=== PATIENT | male | born 1955 | race Caucasian/White ===

== ENCOUNTER 2020-03-29 16:07 | Inpatient (IN) | payer MEDICARE, BC ==
[~2020-03-29] VITALS: Ht 182.9 cm; Wt 89.4 kg
[2020-03-29] MEDS ORDERED: Z GUARD REMEDY PASTE 57 GM TUBE TOP PRN (20:00)
[2020-03-29] MEDS ORDERED: LOSA50TA3 PO (20:05)
[2020-03-29] MEDS ORDERED: MULT-594 PO (20:05)
[2020-03-29] MEDS ORDERED: SITA100T PO (20:05)
[2020-03-29] MEDS ORDERED: GABA-532 PO (20:05)
[2020-03-29] MEDS ORDERED: GLIP5TAB26 PO (20:05)
[2020-03-29] MEDS ORDERED: ASPI-612 PO (20:25)
[2020-03-29 20:30] VITALS: BP 114/65
[2020-03-29] MEDS ORDERED: MIRALAX 17 GM POWD.PACK PO PRN (21:00)
[2020-03-29] MEDS: DOCUSATE SODIUM 100 MG CAPSULE PO SCH (21:19)
[2020-03-29] MEDS: GABAPENTIN 100 MG CAPSULE PO SCH (21:19)
--- NOTE | 2020-03-29 21:43 | NUR ---
Pt arrived in the unit at 1925 via gurney accompanied by sales lead. Pt came from [facility]. Pt is AAO x4. No acute distress noted. Admitting diagnosis: S/P left hip fracture, S/P left hip ORIF sx. Surgical site on lower abdominal area, original dressing, to be change post-op day 7 as per surgeon. No redness, itchiness, warmth, or drainage noted on the surrounding area. Pertinent assessment done. Notified Dr. Osman and Dr. Benton of admission and for med recon. Oriented pt to the room and equipment. Safety measures maintained. Call light and personal items within reach. Will continue to monitor.
[2020-03-29] MEDS: ACETAMINOPHEN 325 MG TABLET PO PRN (23:44)
[2020-03-30] MEDS: ZOLPIDEM 5 MG TABLET PO PRN ×2 (00:48→22:50)
[2020-03-30] MEDS: OXYCODONE/APAP 5-325 MG TABLET PO PRN ×4 (01:20→17:41)
[2020-03-30 04:50] VITALS: BP 115/63
[2020-03-30 07:18] LABS: THYROID STIMULATING HORMONE 2.599 mIU/mL (0.358-3.740)
[2020-03-30 07:53] LABS: BASOPHILS % (AUTO) 0.3 % (0.0-2.0); EOSINOPHILS # (AUTO) 0.3 K/uL (0.0-0.7); EOSINOPHILS % (AUTO) 4.2 % (0.0-7.0); HEMATOCRIT 24.6 % (36.7-47.1); HEMOGLOBIN 8.6 g/dL (12.5-16.3); LYMPHOCYTES # (AUTO) 1.4 K/uL (20.0-40.0); LYMPHOCYTES % (AUTO) 17.8 % (20.5-51.5); MEAN CORPUSCULAR HEMOGLOBIN 31.1 uug (23.8-33.4); MEAN CORPUSCULAR HGB CONC 35 g/dL (32.5-36.3); MONOCYTES # (AUTO) 0.9 K/uL (2.0-10.0); MONOCYTES % (AUTO) 11.3 % (0.0-11.0); NEUTROPHILS # (AUTO) 5.2 K/uL (1.8-8.9); NEUTROPHILS % (AUTO) 66.4 % (38.5-71.5); PLATELET COUNT (AUTO) 309 K/uL (152-348); RED BLOOD CELL COUNT(AUTO) 2.77 MIL/uL (4.06-5.63); WHITE BLOOD COUNT (AUTO) 7.8 K/uL (3.6-10.2)
[2020-03-30 07:59] LABS: BILIRUBIN,TOTAL 0.9 mg/dL (0.2-1.0); CREATININE 1.1 mg/dL (0.6-1.3); MAGNESIUM 2.1 mg/dL (1.8-2.4); POTASSIUM 4.1 mmol/L (3.5-5.1); TOTAL PROTEIN, SERUM 6.4 g/dL (6.4-8.2)
[2020-03-30 08:00] VITALS: BP 128/68
[2020-03-30] MEDS: LINAGLIPTIN 5 MG TABLET PO SCH (08:36)
[2020-03-30] MEDS: MULTIVITAMINS,THERAPEUTIC TABLET PO SCH (08:36)
[2020-03-30] MEDS: ASPIRIN 325 MG TABLET PO SCH (08:36)
--- NOTE | 2020-03-30 09:04 | NUR ---
Pt received this morning, assessed, no acute distress, no SOB, reports pain 8/10 to hips and knees after transferring from bed to wheelchair with therapist. Pt compliant with routine and PRN pain medication. Pt cooperative with therapies as offered. Left hip original dressing in place, appears clean and dry, will endorse to remain until 7th day post op (04/01). Pt AAOx4, able to make needs known. Call light within reach. Plan for today discussed. Will continue to monitor.
[2020-03-30] MEDS: glipiZIDE XL 5 MG TABCR PO SCH ×2 (09:20→17:09)
[2020-03-30] MEDS: LOSARTAN POTASSIUM 50 MG TABLET PO SCH (09:21)
[2020-03-30] MEDS: ACETAMINOPHEN 325 MG TABLET PO PRN (11:08)
[2020-03-30 15:49] VITALS: BP 122/73
[2020-03-30 20:00] VITALS: BP 127/65
[2020-03-30] MEDS: GABAPENTIN 100 MG CAPSULE PO SCH (20:22)
[2020-03-30] MEDS: DOCUSATE SODIUM 100 MG CAPSULE PO SCH (20:22)
--- NOTE | 2020-03-30 21:33 | NUR ---
Received pt resting in bed and watching tv. AAO x4. No acute distress noted. Denies pain/ discomfort at this time. Due meds given as ordered. Left leg kept straight. Safety measures maintained. Call light and personal items within reach. Will continue to monitor.
[2020-03-31 04:00] VITALS: BP 125/69
[2020-03-31 08:00] VITALS: BP 120/68
[2020-03-31] MEDS: ASPIRIN 325 MG TABLET PO SCH (08:20)
[2020-03-31] MEDS: LINAGLIPTIN 5 MG TABLET PO SCH (08:20)
[2020-03-31] MEDS: MULTIVITAMINS,THERAPEUTIC TABLET PO SCH (08:20)
[2020-03-31] MEDS: OXYCODONE/APAP 5-325 MG TABLET PO PRN ×3 (08:23→21:48)
[2020-03-31] MEDS: LOSARTAN POTASSIUM 50 MG TABLET PO SCH (08:24)
[2020-03-31] MEDS: glipiZIDE XL 5 MG TABCR PO SCH ×2 (09:06→16:11)
[2020-03-31 15:50] VITALS: BP 120/69
[2020-03-31] MEDS: GABAPENTIN 100 MG CAPSULE PO SCH (20:17)
[2020-03-31] MEDS: DOCUSATE SODIUM 100 MG CAPSULE PO SCH (20:17)
[2020-03-31 20:30] VITALS: BP 130/63
--- NOTE | 2020-03-31 21:30 | NUR ---
Received pt resting in bed and watching tv. AAO x4. No acute distress noted, no s/s of SOB noted. complaint of 8/10 pain. Administered Percocet PRN for 8/10 pain in left hip. All due mediation given as ordered. Left leg kept straight. All needs attended too. Skin warm to touch, dy and intact. Origional dressing on abdomen intact, no drainage, no s/s of infection noted. Safety measures maintained. Call light and personal items within reach. Will continue to monitor throughout the night.
[2020-04-01 04:10] VITALS: BP 126/68
[2020-04-01 07:47] VITALS: BP 125/67
[2020-04-01] MEDS: LINAGLIPTIN 5 MG TABLET PO SCH (08:44)
[2020-04-01] MEDS: MULTIVITAMINS,THERAPEUTIC TABLET PO SCH (08:44)
[2020-04-01] MEDS: ASPIRIN 325 MG TABLET PO SCH (08:44)
[2020-04-01] MEDS: LOSARTAN POTASSIUM 50 MG TABLET PO SCH (08:45)
[2020-04-01] MEDS: glipiZIDE XL 5 MG TABCR PO SCH ×2 (08:45→16:44)
[2020-04-01] MEDS: OXYCODONE/APAP 5-325 MG TABLET PO PRN (08:53)
--- NOTE | 2020-04-01 13:32 | NUR ---
INTERDISCIPLINARY TEAM CONFERENCE
--- NOTE | 2020-04-01 13:34 | NUR ---
INDIVIDUALIZED PLAN OF CARE
[2020-04-01 15:00] VITALS: BP 122/70
--- NOTE | 2020-04-01 18:38 | NUR ---
patient noted with open blister to his right mid back, wound consult placed, incision site is dr and clean, thais are intact. Addendum: 04/01/20 at 1839 by JUANITA PETERSEN RN RN incision site is clean and dry, well approximated
[2020-04-01 20:21] VITALS: BP 123/66
[2020-04-01] MEDS: GABAPENTIN 300 MG CAPSULE PO SCH (20:42)
[2020-04-01] MEDS: DOCUSATE SODIUM 100 MG CAPSULE PO SCH (20:42)
[2020-04-02] MEDS: ZOLPIDEM 5 MG TABLET PO PRN (01:50)
--- NOTE | 2020-04-02 02:31 | NUR ---
Admitted for left hip fracture. Patient S/P left hip ORIF by Dr Curry in [facility]. Abdominal incision with dressing clean dry and intact thru anterior approach. On pain management. Denies any pain at this time. Will monitor patient. Voiding freely. Kept comfortable. VSS. Fall precautions maintained. Siderails up for safety.
[2020-04-02 04:00] VITALS: BP 122/74
[2020-04-02 08:00] VITALS: BP 115/63
[2020-04-02 08:08] LABS: BILIRUBIN,TOTAL 0.7 mg/dL (0.2-1.0); CREATININE 1.1 mg/dL (0.6-1.3); MAGNESIUM 2.1 mg/dL (1.8-2.4); PHOSPHOROUS 4.2 mg/dL (2.5-4.9); POTASSIUM 4.4 mmol/L (3.5-5.1); TOTAL PROTEIN, SERUM 6.5 g/dL (6.4-8.2)
[2020-04-02] MEDS: LINAGLIPTIN 5 MG TABLET PO SCH (08:39)
[2020-04-02] MEDS: ASPIRIN 325 MG TABLET PO SCH (08:40)
[2020-04-02] MEDS: MULTIVITAMINS,THERAPEUTIC TABLET PO SCH (08:40)
[2020-04-02] MEDS: LOSARTAN POTASSIUM 50 MG TABLET PO SCH (08:40)
[2020-04-02] MEDS: glipiZIDE XL 5 MG TABCR PO SCH ×2 (08:40→17:38)
[2020-04-02 09:21] LABS: BASOPHILS # (AUTO) 0.1 K/uL (0.0-8.0); BASOPHILS % (AUTO) 0.7 % (0.0-2.0); EOSINOPHILS # (AUTO) 0.4 K/uL (0.0-0.7); EOSINOPHILS % (AUTO) 4.3 % (0.0-7.0); HEMATOCRIT 23.8 % (36.7-47.1); HEMOGLOBIN 8.3 g/dL (12.5-16.3); LYMPHOCYTES # (AUTO) 1.5 K/uL (20.0-40.0); LYMPHOCYTES % (AUTO) 18.4 % (20.5-51.5); MEAN CORPUSCULAR HEMOGLOBIN 31.2 uug (23.8-33.4); MEAN CORPUSCULAR HGB CONC 35 g/dL (32.5-36.3); MEAN CORPUSCULAR VOLUME 89.8 fL (73.0-96.2); MONOCYTES % (AUTO) 12.3 % (0.0-11.0); NEUTROPHILS # (AUTO) 5.3 K/uL (1.8-8.9); NEUTROPHILS % (AUTO) 64.3 % (38.5-71.5); PLATELET COUNT (AUTO) 573 K/uL (152-348); RED BLOOD CELL COUNT(AUTO) 2.65 MIL/uL (4.06-5.63); WHITE BLOOD COUNT (AUTO) 8.2 K/uL (3.6-10.2)
[2020-04-02 11:32] VITALS: BP 97/67
[2020-04-02] MEDS: OXYCODONE/APAP 5-325 MG TABLET PO PRN ×2 (11:52→17:38)
[2020-04-02 15:46] VITALS: BP 118/67
[2020-04-02 20:00] VITALS: BP 127/67
[2020-04-02] MEDS: GABAPENTIN 300 MG CAPSULE PO SCH (20:35)
[2020-04-02] MEDS: DOCUSATE SODIUM 100 MG CAPSULE PO SCH (20:35)
--- NOTE | 2020-04-03 03:48 | NUR ---
awake alert and oriented x3-4 Patient admitted for a left hip Fx secondary to a fall. On pain medicine, denies any pain at this time. Voiding well. Needs attended. Kept comfortable.Siderails up for safety.VSS.
[2020-04-03 04:00] VITALS: BP 116/67
--- NOTE | 2020-04-03 06:47 | NUR ---
End of shift report: Quiet night. Slept well throughout the night. Denies any pain nor any discomfort. Will monitor patient. Voiding well. No acute distress noted.
[2020-04-03 08:04] VITALS: BP 104/64
[2020-04-03] MEDS: LINAGLIPTIN 5 MG TABLET PO SCH (08:57)
[2020-04-03] MEDS: glipiZIDE XL 5 MG TABCR PO SCH ×2 (08:57→17:33)
[2020-04-03] MEDS: ASPIRIN 325 MG TABLET PO SCH (08:58)
[2020-04-03] MEDS: OXYCODONE/APAP 5-325 MG TABLET PO PRN ×3 (08:58→17:33)
[2020-04-03] MEDS: MULTIVITAMINS,THERAPEUTIC TABLET PO SCH (08:58)
[2020-04-03] MEDS: LOSARTAN POTASSIUM 50 MG TABLET PO SCH (08:58)
[2020-04-03 16:08] VITALS: BP 105/60
[2020-04-03 20:00] VITALS: BP 107/63
[2020-04-03] MEDS: GABAPENTIN 300 MG CAPSULE PO SCH (20:06)
[2020-04-03] MEDS: DOCUSATE SODIUM 100 MG CAPSULE PO SCH (20:06)
[2020-04-03] MEDS: ZOLPIDEM 5 MG TABLET PO PRN (20:10)
--- NOTE | 2020-04-03 21:55 | NUR ---
Received pt resting in bed. AAO x4. No acute distress. Denies pain/ discomfort. Due meds given as ordered. No s/s of infection on surgical site. Safety measures maintained. Call light and personal items within reach. Will continue to monitor.
[2020-04-04 04:00] VITALS: BP 108/64
--- NOTE | 2020-04-04 05:11 | NUR ---
Pt's BP 89/54, put pt in trendelenburg position. Upon recheck, BP 95/52. Pt denies dizziness, sob, or chest pain. As per pt, his BP is normally on the low side. Will continue to monitor. Addendum: 04/04/20 at 2126 by Olivia Marrero RN WRONG PATIENT
[2020-04-04 06:45] LABS: BASOPHILS # (AUTO) 0.1 K/uL (0.0-8.0); BASOPHILS % (AUTO) 0.6 % (0.0-2.0); EOSINOPHILS # (AUTO) 0.3 K/uL (0.0-0.7); EOSINOPHILS % (AUTO) 3.8 % (0.0-7.0); HEMATOCRIT 25.4 % (36.7-47.1); HEMOGLOBIN 8.7 g/dL (12.5-16.3); LYMPHOCYTES # (AUTO) 1.5 K/uL (20.0-40.0); LYMPHOCYTES % (AUTO) 17.2 % (20.5-51.5); MEAN CORPUSCULAR HEMOGLOBIN 30.8 uug (23.8-33.4); MEAN CORPUSCULAR HGB CONC 34 g/dL (32.5-36.3); MEAN CORPUSCULAR VOLUME 90.1 fL (73.0-96.2); MONOCYTES # (AUTO) 0.9 K/uL (2.0-10.0); MONOCYTES % (AUTO) 10.3 % (0.0-11.0); NEUTROPHILS # (AUTO) 6.1 K/uL (1.8-8.9); NEUTROPHILS % (AUTO) 68.1 % (38.5-71.5); PLATELET COUNT (AUTO) 710 K/uL (152-348); RED BLOOD CELL COUNT(AUTO) 2.82 MIL/uL (4.06-5.63)
[2020-04-04 07:07] LABS: BILIRUBIN,TOTAL 0.5 mg/dL (0.2-1.0); CREATININE 1.1 mg/dL (0.6-1.3); PHOSPHOROUS 3.8 mg/dL (2.5-4.9); POTASSIUM 4.6 mmol/L (3.5-5.1); TOTAL PROTEIN, SERUM 6.7 g/dL (6.4-8.2)
[2020-04-04 08:00] VITALS: BP 109/60
[2020-04-04] MEDS: ASPIRIN 325 MG TABLET PO SCH (08:37)
[2020-04-04] MEDS: LINAGLIPTIN 5 MG TABLET PO SCH (08:39)
[2020-04-04] MEDS: glipiZIDE XL 5 MG TABCR PO SCH ×2 (08:40→18:15)
[2020-04-04] MEDS: MULTIVITAMINS,THERAPEUTIC TABLET PO SCH (08:40)
[2020-04-04] MEDS: LOSARTAN POTASSIUM 50 MG TABLET PO SCH (08:41)
--- NOTE | 2020-04-04 12:16 | NUR ---
WOUND CARE CONSULT: HEALED AREA NOTED TO MIDBACK. PT IS INDEPENDENT WITH BED MOBILITY AND IS CONTINENT. WILL SEE PRN.
[2020-04-04] MEDS: OXYCODONE/APAP 5-325 MG TABLET PO PRN ×2 (12:17→19:07)
[2020-04-04 16:00] VITALS: BP 115/63
[2020-04-04 18:15] LABS: EOSINOPHILS % (MANUAL) 2 % (0-8); LYMPHOCYTES % (MANUAL) 12 % (20-40); MONOCYTES % (MANUAL) 6 % (2-10); NEUTROPHILS % (MANUAL) 80 % (42-75)
[2020-04-04] MEDS: ZOLPIDEM 5 MG TABLET PO PRN (20:01)
[2020-04-04] MEDS: GABAPENTIN 300 MG CAPSULE PO SCH (20:01)
[2020-04-04] MEDS: DOCUSATE SODIUM 100 MG CAPSULE PO SCH (20:01)
[2020-04-04 20:49] VITALS: BP 115/61
--- NOTE | 2020-04-04 21:28 | NUR ---
Received pt resting in bed and watching tv. AAO x4. No acute distress. Denies pain/ discomfort. Due meds given as ordered. Requested for Ambien, pt wants to sleep early. No s/s of infection on surgical site. Kept left leg and hip in straight position. Safety measures maintained. Call light and personal items within reach. Will continue to monitor.
[2020-04-05 04:50] VITALS: BP 122/66
[2020-04-05] MEDS: ASPIRIN 325 MG TABLET PO SCH (08:41)
[2020-04-05] MEDS: MULTIVITAMINS,THERAPEUTIC TABLET PO SCH (08:42)
[2020-04-05] MEDS: glipiZIDE XL 5 MG TABCR PO SCH ×2 (08:42→16:50)
[2020-04-05] MEDS: LINAGLIPTIN 5 MG TABLET PO SCH (08:42)
[2020-04-05 08:43] VITALS: BP 112/69
[2020-04-05] MEDS: LOSARTAN POTASSIUM 50 MG TABLET PO SCH (09:53)
[2020-04-05 10:06] LABS: HEPATITIS A AB, TOTAL Negative (Negative); HEPATITIS B SURFACE AB Non Reactive (.)
[2020-04-05] MEDS: OXYCODONE/APAP 5-325 MG TABLET PO PRN ×2 (10:12→14:41)
[2020-04-05 15:36] VITALS: BP 108/61
--- NOTE | 2020-04-05 18:30 | NUR ---
Patient remains alert, oriented x 4, not in any form of distress, on room air. He complained of pain on the left hip, given PRN pain medication as ordered with noted relief. Assisted with his needs. Call light and frequently used items placed within patient's reach. Will endorse accordingly to manager helpdesk nurse.
[2020-04-05 20:06] VITALS: BP 100/60
[2020-04-05] MEDS: DOCUSATE SODIUM 100 MG CAPSULE PO SCH (21:23)
[2020-04-05] MEDS: GABAPENTIN 300 MG CAPSULE PO SCH (21:23)
--- NOTE | 2020-04-06 03:53 | NUR ---
Condition unchanged. Patient with left hip fracture. Had S/P ORIF left hip. VSS. On pain management. Denies any pain at this time. Kept comfortable. No acute distress noted.
[2020-04-06 04:06] VITALS: BP 115/67
--- NOTE | 2020-04-06 06:28 | NUR ---
End of shift notes: Slept well throughout the night. Needs attended. Kept comfortable. No acute distress noted. Will monitor patient. No complaints presented during shift.
[2020-04-06 08:00] VITALS: BP 110/66
[2020-04-06] MEDS: MULTIVITAMINS,THERAPEUTIC TABLET PO SCH (08:03)
[2020-04-06] MEDS: LOSARTAN POTASSIUM 50 MG TABLET PO SCH (08:03)
[2020-04-06] MEDS: ASPIRIN 325 MG TABLET PO SCH (08:03)
[2020-04-06] MEDS: glipiZIDE XL 5 MG TABCR PO SCH ×2 (08:03→16:34)
[2020-04-06] MEDS: LINAGLIPTIN 5 MG TABLET PO SCH (08:03)
[2020-04-06 09:15] LABS: BASOPHILS # (AUTO) 0.1 K/uL (0.0-8.0); BASOPHILS % (AUTO) 0.6 % (0.0-2.0); EOSINOPHILS # (AUTO) 0.3 K/uL (0.0-0.7); EOSINOPHILS % (AUTO) 3.6 % (0.0-7.0); HEMOGLOBIN 9.2 g/dL (12.5-16.3); LYMPHOCYTES # (AUTO) 1.5 K/uL (20.0-40.0); LYMPHOCYTES % (AUTO) 17.6 % (20.5-51.5); MEAN CORPUSCULAR HEMOGLOBIN 30.7 uug (23.8-33.4); MEAN CORPUSCULAR HGB CONC 34 g/dL (32.5-36.3); MEAN CORPUSCULAR VOLUME 90.2 fL (73.0-96.2); MONOCYTES # (AUTO) 0.7 K/uL (2.0-10.0); MONOCYTES % (AUTO) 8.5 % (0.0-11.0); NEUTROPHILS # (AUTO) 5.9 K/uL (1.8-8.9); NEUTROPHILS % (AUTO) 69.7 % (38.5-71.5); PLATELET COUNT (AUTO) 800 K/uL (152-348); RED BLOOD CELL COUNT(AUTO) 2.99 MIL/uL (4.06-5.63); WHITE BLOOD COUNT (AUTO) 8.5 K/uL (3.6-10.2)
[2020-04-06 09:22] LABS: BILIRUBIN,DIRECT 0.2 mg/dL (0.0-0.2); BILIRUBIN,TOTAL 0.5 mg/dL (0.2-1.0); MAGNESIUM 2.3 mg/dL (1.8-2.4); PHOSPHOROUS 3.5 mg/dL (2.5-4.9); POTASSIUM 4.2 mmol/L (3.5-5.1); TOTAL PROTEIN, SERUM 6.7 g/dL (6.4-8.2)
[2020-04-06] MEDS: OXYCODONE/APAP 5-325 MG TABLET PO PRN ×2 (10:21→21:51)
--- NOTE | 2020-04-06 13:51 | NUR ---
INTERDISCIPLINARY TEAM CONFERENCE
[2020-04-06 15:18] VITALS: BP 98/64
[2020-04-06 15:19] LABS: BAND % (MANUAL) 1 % (0-10); NEUTROPHILS % (MANUAL) 65 % (42-75)
[2020-04-06 15:20] LABS: EOSINOPHILS % (MANUAL) 4 % (0-8); LYMPHOCYTES % (MANUAL) 20 % (20-40); MONOCYTES % (MANUAL) 10 % (2-10)
--- NOTE | 2020-04-06 17:45 | NUR ---
no changes noted during shift
[2020-04-06 20:03] VITALS: BP 112/65
[2020-04-06] MEDS: DOCUSATE SODIUM 100 MG CAPSULE PO SCH (20:33)
[2020-04-06] MEDS: GABAPENTIN 300 MG CAPSULE PO SCH (20:34)
[2020-04-06] MEDS: ZOLPIDEM 5 MG TABLET PO PRN (21:50)
--- NOTE | 2020-04-06 22:46 | NUR ---
Resting in bed upon initial rounds. AAOx4 Ambulates to the BR. Voiding freely. Needs attended. Medicated with Percocet for left hip pain. Relief noted. All due meds given without difficulty.No acute distress noted. Sleeping pill given. Will monitor patient.
[2020-04-07 04:03] VITALS: BP 112/63
--- NOTE | 2020-04-07 06:46 | NUR ---
End of shift notes. AAOx4 NO acute noted. Needs attended. VSS. Slept well last night. Uneventful night. Voiding well Kept comfortable. Voiding well. Will monitor patient.
[2020-04-07] MEDS: ACETAMINOPHEN 325 MG TABLET PO PRN (07:16)
[2020-04-07 08:00] VITALS: BP 113/67
[2020-04-07] MEDS: ASPIRIN 325 MG TABLET PO SCH (08:24)
[2020-04-07] MEDS: LINAGLIPTIN 5 MG TABLET PO SCH (08:24)
[2020-04-07] MEDS: LOSARTAN POTASSIUM 50 MG TABLET PO SCH (08:25)
[2020-04-07] MEDS: MULTIVITAMINS,THERAPEUTIC TABLET PO SCH (08:25)
[2020-04-07] MEDS: glipiZIDE XL 5 MG TABCR PO SCH ×2 (08:28→16:00)
[2020-04-07] MEDS: OXYCODONE/APAP 5-325 MG TABLET PO PRN ×2 (10:09→15:56)
--- NOTE | 2020-04-07 14:30 | NUR ---
no changes noted during shift, patient is alert, oriented x4, verbally responsive, no sob, resp even nonlabored,skin warm and dry to touch, ambulatory, independent with adls. incision site is well approximated, thais intact, along incision site is slightly red, however no drainage,no odor noted
[2020-04-07 15:17] VITALS: BP 105/68
[2020-04-07 20:09] VITALS: BP 117/65
[2020-04-07] MEDS: GABAPENTIN 300 MG CAPSULE PO SCH (20:20)
[2020-04-07] MEDS: DOCUSATE SODIUM 100 MG CAPSULE PO SCH (20:20)
[2020-04-08] MEDS: OXYCODONE/APAP 5-325 MG TABLET PO PRN ×4 (01:33→22:30)
[2020-04-08] MEDS: ZOLPIDEM 5 MG TABLET PO PRN ×2 (02:13→23:07)
--- NOTE | 2020-04-08 02:15 | NUR ---
Received pt resting in bed and watching tv. AAO x4. No acute distress. Denies pain/ discomfort @ beginning of shift . Due meds given as ordered. Requested pain medication for pain 11/05 and requested for Ambien, pt wants to sleep, administered per pt request. No s/s of infection on surgical site. Kept left leg and hip in straight position. Safety measures maintained. Call light and personal items within reach. Will continue to monitor.
[2020-04-08 04:40] VITALS: BP 133/68
[2020-04-08 08:00] VITALS: BP 112/65
[2020-04-08 08:25] LABS: BASOPHILS % (AUTO) 0.7 % (0.0-2.0); EOSINOPHILS # (AUTO) 0.2 K/uL (0.0-0.7); EOSINOPHILS % (AUTO) 3.7 % (0.0-7.0); HEMATOCRIT 26.9 % (36.7-47.1); HEMOGLOBIN 9.1 g/dL (12.5-16.3); LYMPHOCYTES # (AUTO) 1.7 K/uL (20.0-40.0); LYMPHOCYTES % (AUTO) 25.8 % (20.5-51.5); MEAN CORPUSCULAR HEMOGLOBIN 30.4 uug (23.8-33.4); MEAN CORPUSCULAR HGB CONC 34 g/dL (32.5-36.3); MEAN CORPUSCULAR VOLUME 89.5 fL (73.0-96.2); MONOCYTES # (AUTO) 0.7 K/uL (2.0-10.0); MONOCYTES % (AUTO) 10.5 % (0.0-11.0); NEUTROPHILS # (AUTO) 3.8 K/uL (1.8-8.9); NEUTROPHILS % (AUTO) 59.3 % (38.5-71.5); PLATELET COUNT (AUTO) 839 K/uL (152-348); RED BLOOD CELL COUNT(AUTO) 3.01 MIL/uL (4.06-5.63); WHITE BLOOD COUNT (AUTO) 6.5 K/uL (3.6-10.2)
[2020-04-08 08:44] LABS: BILIRUBIN,DIRECT 0.1 mg/dL (0.0-0.2); BILIRUBIN,TOTAL 0.5 mg/dL (0.2-1.0); MAGNESIUM 2.2 mg/dL (1.8-2.4); PHOSPHOROUS 3.7 mg/dL (2.5-4.9); POTASSIUM 4.4 mmol/L (3.5-5.1); TOTAL PROTEIN, SERUM 6.6 g/dL (6.4-8.2)
[2020-04-08] MEDS: LINAGLIPTIN 5 MG TABLET PO SCH (10:34)
[2020-04-08] MEDS: LOSARTAN POTASSIUM 50 MG TABLET PO SCH (10:34)
[2020-04-08] MEDS: MULTIVITAMINS,THERAPEUTIC TABLET PO SCH (10:35)
[2020-04-08] MEDS: glipiZIDE XL 5 MG TABCR PO SCH ×2 (10:35→16:55)
[2020-04-08] MEDS: ASPIRIN 325 MG TABLET PO SCH (10:35)
[2020-04-08 16:00] VITALS: BP 113/69
[2020-04-08 20:00] VITALS: BP 100/58
[2020-04-08] MEDS: DOCUSATE SODIUM 100 MG CAPSULE PO SCH (21:17)
[2020-04-08] MEDS: GABAPENTIN 300 MG CAPSULE PO SCH (21:17)
[2020-04-09 04:00] VITALS: BP 104/61
--- NOTE | 2020-04-09 05:42 | NUR ---
no new changes. Denies pain/ discomfort @ beginning of shift . Due meds given as ordered. Requested pain medication for pain 11/05 and requested for Ambien, pt wants to sleep, administered per pt request. No s/s of infection on surgical site, thais intact. Kept left leg and hip in straight position. Safety measures maintained. Call light and personal items within reach. Will endorse to oncoming shift nurse.
[2020-04-09 07:32] VITALS: BP 118/69
[2020-04-09 08:05] VITALS: BP 118/69
[2020-04-09] MEDS: LOSARTAN POTASSIUM 50 MG TABLET PO SCH (08:05)
[2020-04-09] MEDS: MULTIVITAMINS,THERAPEUTIC TABLET PO SCH (08:05)
[2020-04-09] MEDS: LINAGLIPTIN 5 MG TABLET PO SCH (08:05)
[2020-04-09] MEDS: ASPIRIN 325 MG TABLET PO SCH (08:05)
[2020-04-09] MEDS: glipiZIDE XL 5 MG TABCR PO SCH (08:06)
[2020-04-09] MEDS: OXYCODONE/APAP 5-325 MG TABLET PO PRN (09:12)
[2020-04-09] MEDS ORDERED: Oxycodone/Apap 5-325 Mg PO (13:00)
[2020-04-09] MEDS ORDERED: HYDR-4384 PO (13:00)
--- NOTE | 2020-04-09 14:00 | NUR ---
dc orders received noted and carried out,dc instruction and education given to the pt,pt verbalized understanding all the instruction.pt left the facility via private car in stable condition
== END 2020-04-09 13:45 | disposition home health service (06) | DRG 560 ==
PROVIDERS: ADMIT Physical Medicine & Rehabilitation Pain Medicine; ATTEND Physical Medicine & Rehabilitation Pain Medicine
DX: S32.402D Unspecified fracture of left acetabulum, subsequent encounter for fracture with routine healing (principal); D62 Acute posthemorrhagic anemia; S32.592D Other specified fracture of left pubis, subsequent encounter for fracture with routine healing; V18.4XXD Pedal cycle driver injured in noncollision transport accident in traffic accident, subsequent encounter; E11.9 Type 2 diabetes mellitus without complications; E88.09 Other disorders of plasma-protein metabolism, not elsewhere classified; I10 Essential (primary) hypertension; Z87.891 Personal history of nicotine dependence; Z96.659 Presence of unspecified artificial knee joint; Z98.1 Arthrodesis status; M19.90 Unspecified osteoarthritis, unspecified site; R74.01 Elevation of levels of liver transaminase levels; Z88.0 Allergy status to penicillin; Z88.8 Allergy status to other drugs, medicaments and biological substances
CPT/HCPCS: 36415; 70030-TC; 73501; 76705; 82652; 83690; 83735; 84100; 84443; 85025; 86705; 86706; 86708; 86803; J8499